=== PATIENT | female | born 1980 | race African-American/Black ===

== ENCOUNTER 2019-10-06 11:37 | Inpatient (IN) ==
[2019-10-06] MEDS ORDERED: SODIUM CHLORIDE 0.9% 2,000 ML IV STA (12:06)
[2019-10-06] MEDS ORDERED: ORPHENADRINE 60 MG/2 ML VIAL IV STA (12:06)
[2019-10-06] MEDS ORDERED: methylPREDNISolone SOD SUC 125 MG/2 ML VIAL IV STA (12:06)
[2019-10-06 12:34] LABS: Basophils % 0.3 % (0.0-0.8); Eosinophils # 0.2 10*3/uL (0.0-0.87); Eosinophils % 2.6 % (0.00-10.9); Hematocrit 39.7 VOL% (35.7-47.0); Hemoglobin 12.6 GM/DL (12.0-16.0); Immature Granulocytes % 0.3 %; Immature Granulocytes Absolute 0.02 #; Lymphocytes # 2.5 10*3/uL (1.4-4.0); Lymphocytes % 40.1 % (21.3-54.2); Mean Corpuscular HGB Conc 31.7 GM/DL (32-36); Mean Corpuscular Volume 76.8 FL (87-102); Mean Platelet Volume 10.4 FL (9.6-12.0); Monocytes % 5.1 % (1.7-12.7); Neutrophils % 51.6 % (38.7-73.9); Platelet Count 305 T/CUMM (130-400); Red Blood Count 5.17 MC/CUMM (3.8-5.5); Red Cell Distribution Width 13.5 % (9.3-17.3); White Blood Count 6.2 T/CUMM (4-12)
[2019-10-06 13:31] LABS: Alanine Aminotransferase 192 U/L (13-56); Albumin 3.8 G/DL (3.4-5.0); Alkaline Phosphatase 79 U/L (45-117); Aspartate Amino Transferase 992 U/L (0-37); Blood Urea Nitrogen 9 MG/DL (7-18); Calcium 9.4 MG/DL (8.5-10.1); Estimated Glom Filtration Rate 168 ML/MIN; Glucose 188 MG/DL (74-106); Osmolality,Calculated 271.2 MOS/KG (273-304); Total Protein 8.5 G/DL (6.4-8.3); Troponin I < 0.015 NG/ML (0.00-0.045)
[2019-10-06] MEDS ORDERED: SODIUM CHLORIDE 0.9% 1,000 ML IV STA (14:03)
[2019-10-06 14:20] LABS: Apearance,Urine Slightly Hazy (Clear); Bacteria,Urine Many /HPF (Few); Bilirubin,Urine Negative (Negative); Blood, Urine Large mg/dL (Negative); Glucose,Urine (UA) 50 mg/dL (Negative); Ketones,Urine 5 mg/dL (Negative); Mucus,Urine Occasional /LPF (Occasional); Nitrite,Urine Negative (Negative); Protein,Urine 30 MG/DL; RBC,Urine 1 /HPF (0-4); Squamous Epithelial Cell,Urine Occasional /HPF (0-10); Urine Color Yellow (Yellow); Urine Specific Gravity 1.017 (1.001-1.035); Urine Urobilinogen < 2.0 EU/DL (0.2-1.0); WBC,Urine 2 /HPF (0-6)
[2019-10-06 14:35] LABS: CKMB % 0.1 %
[2019-10-06] MEDS ORDERED: ACETAMINOPHEN 325 MG TABLET PO PRN (15:49)
[2019-10-06] MEDS ORDERED: ONDANSETRON 4 MG/2 ML VIAL IV PRN (15:49)
[2019-10-06] MEDS ORDERED: DOCUSATE SODIUM 100 MG CAPSULE PO PRN (15:49)
[2019-10-06] MEDS: LACTATED RINGERS 1,000 ML IV SCH (17:24)
[2019-10-06] MEDS: ENOXAPARIN 40 MG/0.4 ML SYRINGE SUBCUT SCH (20:16)
[2019-10-07] MEDS: LACTATED RINGERS 1,000 ML IV SCH ×4 (01:56→23:07)
[2019-10-07 06:15] LABS: Eosinophils % 0.1 % (0.00-10.9); Hematocrit 35.4 VOL% (35.7-47.0); Hemoglobin 11.1 GM/DL (12.0-16.0); Immature Granulocytes % 0.1 %; Immature Granulocytes Absolute 0.01 #; Lymphocytes # 1.2 10*3/uL (1.4-4.0); Lymphocytes % 16.6 % (21.3-54.2); Mean Corpuscular HGB Conc 31.4 GM/DL (32-36); Mean Corpuscular Volume 77.5 FL (87-102); Mean Platelet Volume 11.1 FL (9.6-12.0); Monocytes % 5.5 % (1.7-12.7); Neutrophils % 77.7 % (38.7-73.9); Platelet Count 305 T/CUMM (130-400); Red Blood Count 4.57 MC/CUMM (3.8-5.5); Red Cell Distribution Width 13.4 % (9.3-17.3); White Blood Count 7.4 T/CUMM (4-12)
[2019-10-07 07:28] LABS: Bilirubin,Total 0.5 MG/DL (0.2-1.0); Calcium 8.9 MG/DL (8.5-10.1); Osmolality,Calculated 275.1 MOS/KG (273-304)
[2019-10-07 07:58] LABS: CKMB % 0.1 %
[2019-10-07] MEDS ORDERED: PANTOPRAZOLE 40 MG TABLET PO SCH (09:00)
[2019-10-07] MEDS: amLODIPine 5 MG TABLET PO SCH (09:13)
[2019-10-07] MEDS: ENOXAPARIN 40 MG/0.4 ML SYRINGE SUBCUT SCH (21:32)
[2019-10-08] MEDS: LACTATED RINGERS 1,000 ML IV SCH ×3 (06:39→22:55)
[2019-10-08 07:15] LABS: Basophils % 0.2 % (0.0-0.8); Eosinophils # 0.2 10*3/uL (0.0-0.87); Eosinophils % 3.5 % (0.00-10.9); Hematocrit 32.2 VOL% (35.7-47.0); Immature Granulocytes % 0.3 %; Immature Granulocytes Absolute 0.02 #; Lymphocytes # 3.2 10*3/uL (1.4-4.0); Lymphocytes % 53.6 % (21.3-54.2); Mean Corpuscular HGB Conc 31.1 GM/DL (32-36); Mean Corpuscular Volume 78.3 FL (87-102); Mean Platelet Volume 10.4 FL (9.6-12.0); Monocytes % 5.8 % (1.7-12.7); Neutrophils % 36.6 % (38.7-73.9); Platelet Count 268 T/CUMM (130-400); Red Blood Count 4.11 MC/CUMM (3.8-5.5); Red Cell Distribution Width 13.7 % (9.3-17.3); White Blood Count 6.1 T/CUMM (4-12)
[2019-10-08 07:48] LABS: Atypical Lymphocytes Few; Eosinophils 5 % (0-10); Hypochromasia 1+; Lymphocytes 58 % (20-55); Platelet Estimate Adequate; Segmented Neutrophils 32 % (50-85); Total Cells Counted 100
[2019-10-08 08:14] LABS: Albumin 2.7 G/DL (3.4-5.0); Bilirubin,Total 0.5 MG/DL (0.2-1.0); Calcium 8.3 MG/DL (8.5-10.1); Osmolality,Calculated 279.8 MOS/KG (273-304); Total Protein 6.1 G/DL (6.4-8.3)
[2019-10-08 08:55] LABS: CKMB % 0.1 %
[2019-10-08] MEDS: amLODIPine 5 MG TABLET PO SCH (08:55)
[2019-10-08] MEDS: PANTOPRAZOLE 40 MG TABLET PO SCH (08:56)
[2019-10-08] MEDS: ENOXAPARIN 40 MG/0.4 ML SYRINGE SUBCUT SCH (20:26)
[2019-10-09 06:26] LABS: Basophils % 0.3 % (0.0-0.8); Eosinophils # 0.2 10*3/uL (0.0-0.87); Eosinophils % 2.7 % (0.00-10.9); Hematocrit 35.1 VOL% (35.7-47.0); Hemoglobin 11.1 GM/DL (12.0-16.0); Immature Granulocytes % 0.1 %; Immature Granulocytes Absolute 0.01 #; Lymphocytes # 2.7 10*3/uL (1.4-4.0); Lymphocytes % 39.6 % (21.3-54.2); Mean Corpuscular HGB Conc 31.6 GM/DL (32-36); Mean Corpuscular Volume 77.3 FL (87-102); Mean Platelet Volume 10.5 FL (9.6-12.0); Monocytes % 6.9 % (1.7-12.7); Neutrophils % 50.4 % (38.7-73.9); Platelet Count 297 T/CUMM (130-400); Red Blood Count 4.54 MC/CUMM (3.8-5.5); Red Cell Distribution Width 13.7 % (9.3-17.3); White Blood Count 6.8 T/CUMM (4-12)
[2019-10-09 07:08] LABS: Albumin 2.8 G/DL (3.4-5.0); Bilirubin,Total 0.4 MG/DL (0.2-1.0); CKMB % 0.1 %; Calcium 8.7 MG/DL (8.5-10.1); Osmolality,Calculated 278.8 MOS/KG (273-304); Total Protein 6.6 G/DL (6.4-8.3)
[2019-10-09] MEDS: LACTATED RINGERS 1,000 ML IV SCH (09:40)
[2019-10-09] MEDS: PANTOPRAZOLE 40 MG TABLET PO SCH (11:53)
[2019-10-09] MEDS: amLODIPine 5 MG TABLET PO SCH (11:53)
[2019-10-09 11:56] VITALS: BP 142/82
== END 2019-10-09 12:07 | disposition home or self-care (01) | DRG 566 ==
LOC: N.ED 11:37 → SUATTDRO 15:36 → N.EDINP 15:36 → N.3E 16:06
PROVIDERS: ADMIT Family Medicine; ATTEND Emergency Medicine

== ENCOUNTER 2021-07-03 05:57 | Inpatient (IN) ==
[2021-07-03] MEDS ORDERED: PANTOPRAZOLE 40 MG VIAL IV ONE (06:02)
[2021-07-03] MEDS ORDERED: SCOPOLAMINE 1.5 MG PATCH TRANSDERM ONE (06:03)
[2021-07-03] MEDS ORDERED: ACETAMINOPHEN INJ 1,000 MG/100 ML VIAL IV ONE ×2 (06:03→06:44)
[2021-07-03] MEDS ORDERED: HEPARIN 5,000 UNIT/1 ML VIAL ONE (06:10)
[2021-07-03] MEDS: LACTATED RINGERS 1,000 ML IV SCH ×5 (06:30→18:21)
[2021-07-03] MEDS ORDERED: LIDOCAINE 2% 5 ML VIAL ONE (06:31)
[2021-07-03] MEDS ORDERED: fentaNYL 100 MCG/2 ML VIAL ONE ×2 (06:31→08:40)
[2021-07-03] MEDS ORDERED: SUCCINYLCHOLINE 200 MG/10 ML VIAL ONE (06:31)
[2021-07-03] MEDS ORDERED: propofoL 200 MG/20 ML VIAL IV ONE (06:31)
[2021-07-03] MEDS ORDERED: MIDAZOLAM 2 MG/2 ML VIAL ONE (06:31)
[2021-07-03] MEDS ORDERED: ROCURONIUM 50 MG/5 ML VIAL IV ONE (06:31)
[2021-07-03] MEDS ORDERED: BUPIVACAINE MPF 0.25% 30 ML VIAL ONE (06:36)
[2021-07-03] MEDS ORDERED: LIDOCAINE 1%/EPI INJ 20 ML VIAL ONE (06:36)
[2021-07-03] MEDS ORDERED: PANTOPRAZOLE 40 MG VIAL IV STA (06:43)
[2021-07-03] MEDS ORDERED: HEPARIN 5,000 UNIT/1 ML VIAL SUBCUT STA (06:44)
[2021-07-03] MEDS ORDERED: SCOPOLAMINE 1.5 MG PATCH TRANSDERM STA (06:44)
[2021-07-03] MEDS ORDERED: BUPIVACAINE LIPOSOMAL 20 ML/266 MG VIAL ONE (06:53)
[2021-07-03] MEDS ORDERED: FAMOTIDINE 20 MG/2 ML VIAL IV ONE (06:53)
[2021-07-03] MEDS ORDERED: HYOSCYAMINE 0.125 MG TABLET PO ONE (07:00)
[2021-07-03] MEDS ORDERED: DEXAMETHASONE 4 MG/1 ML VIAL ONE (07:27)
[2021-07-03] MEDS ORDERED: ONDANSETRON 4 MG/2 ML VIAL ONE ×2 (07:27→08:31)
[2021-07-03] MEDS ORDERED: LACTATED RINGERS 1,000 ML IV ONE (07:47)
[2021-07-03] MEDS ORDERED: PHENYLEPHRINE 1 MG/10 ML SYRINGE IV ONE ×2 (08:15)
[2021-07-03] MEDS ORDERED: NEOSTIGMINE 10 MG/10 ML VIAL ONE (08:28)
[2021-07-03] MEDS ORDERED: GLYCOPYRROLATE 0.4 MG/2 ML VIAL ONE (08:29)
[2021-07-03] MEDS ORDERED: TISSUE ADHESIVE 1 EACH APPLICATOR TOP ONE (08:35)
[2021-07-03] MEDS ORDERED: SEVOFLURANE 1 UNIT/15 MINUTE INH ONE (08:38)
[2021-07-03] MEDS ORDERED: KETOROLAC 30 MG/1 ML VIAL ONE (08:38)
[2021-07-03] MEDS ORDERED: PROMETHAZINE 25 MG/1 ML VIAL ONE (09:07)
[2021-07-03] MEDS: MEPERIDINE 25 MG/1 ML VIAL IV PRN ×2 (09:10→09:24)
[2021-07-03] MEDS ORDERED: MEPERIDINE 25 MG/1 ML VIAL ONE (09:13)
[2021-07-03] MEDS ORDERED: PROMETHAZINE INJ 12.5 MG in SODIUM CHLORIDE 0.9% 50 ML IV PRN (09:18)
[2021-07-03] MEDS ORDERED: hydrALAZINE 20 MG/1 ML VIAL IV PRN (10:20)
[2021-07-03] MEDS ORDERED: HYDROcod/ACETAMIN 7.5-325 MG/15 ML UDCUP PO PRN (10:20)
[2021-07-03] MEDS: ceFAZolin 2,000 MG/50 ML DUPLEX IV SCH (16:01)
[2021-07-03] MEDS: SIMETHICONE CHEW 80 MG TABLET PO SCH (18:58)
[2021-07-03] MEDS: MORPHINE 2 MG/1 ML SYRINGE IV PRN (20:11)
[2021-07-03] MEDS: ONDANSETRON 4 MG/2 ML VIAL IV PRN (20:16)
[2021-07-04] MEDS: ceFAZolin 2,000 MG/50 ML DUPLEX IV SCH (00:17)
[2021-07-04] MEDS: LACTATED RINGERS 1,000 ML IV SCH (01:26)
[2021-07-04 05:19] LABS: Basophils % 0.2 % (0.0-0.8); Hematocrit 32.4 VOL% (35.7-47.0); Hemoglobin 9.9 GM/DL (12.0-16.0); Immature Granulocytes % 0.3 %; Immature Granulocytes Absolute 0.02 #; Lymphocytes # 1.7 10*3/uL (1.4-4.0); Lymphocytes % 28.8 % (21.3-54.2); Mean Corpuscular HGB Conc 30.6 GM/DL (32-36); Mean Corpuscular Volume 78.8 FL (87-102); Mean Platelet Volume 9.8 FL (9.6-12.0); Monocytes % 7.6 % (1.7-12.7); Neutrophils % 63.1 % (38.7-73.9); Platelet Count 252 T/CUMM (130-400); Red Blood Count 4.11 MC/CUMM (3.8-5.5); Red Cell Distribution Width 13.6 % (9.3-17.3)
[2021-07-04 05:39] LABS: Calcium 8.4 MG/DL (8.5-10.1); Osmolality,Calculated 270.7 MOS/KG (273-304); Potassium 3.4 MMOL/L (3.5-5.1)
[2021-07-04] MEDS: SIMETHICONE CHEW 80 MG TABLET PO SCH ×2 (07:38→08:37)
[2021-07-04] MEDS: ONDANSETRON 4 MG/2 ML VIAL IV PRN (08:36)
[2021-07-04] MEDS ORDERED: PANTOPRAZOLE 40 MG VIAL IV SCH (09:00)
[2021-07-04] MEDS ORDERED: PROMETHAZINE 25 MG/1 ML VIAL IM ONE (09:17)
[2021-07-04 11:33] VITALS: BP 157/90
[2021-07-04] MEDS: MORPHINE 2 MG/1 ML SYRINGE IV PRN (12:03)
[2021-07-04] MEDS ORDERED: SIMETHICONE CHEW 80 MG TABLET PO SCH (15:00)
[2021-07-05] MEDS ORDERED: ENOXAPARIN 40 MG/0.4 ML SYRINGE SUBCUT SCH (09:00)
== END 2021-07-04 13:57 | disposition home or self-care (01) | DRG 621 ==
LOC: N.OR 05:57 → N.SDSINP 05:59 → N.3E 13:51
PROVIDERS: ADMIT Surgery; ATTEND Surgery